=== PATIENT | male | born 1990 | race African-American/Black ===

== ENCOUNTER 2017-09-02 18:07 | Emergency (ER) | payer BC, OTHER ==
[~2017-09-02] VITALS: Ht 182.9 cm; Wt 77.1 kg
[~2017-09-02 18:07] MED LIST: ALBU8.5H4 IH; ALPR.25T PO; AMOX500C2 PO; BUTA1CAP39 PO; CYCL10TA9 PO; DOXY100C2 PO; FLT11013 IH; IBP800T PO; LEVO750T6 PO; LRT10T PO; NYST1000 PO; PRD20T PO; PRED20TA PO; SERT25TA5 PO; TRAM-21 PO
--- NOTE | 2017-09-02 20:23 | ED General ---
General Chief Complaint: General Problems/Pain Stated Complaint: NAUSEA AFTER TAKING ANTIBIOTICS/PANIC ATTACK Nursing Triage Note: Pt reports he was possibly exposed to meningitis at work. Pt states he was given Cipro prophylactically at work today and began to feel nauseated afterwards and felt like he was having a panic attack. Nursing Sepsis Screen: No Definite Risk Source of Information: Patient Exam Limitations: No Limitations History of Present Illness Date Seen by Provider: Sep 03, 2017 Time Seen by Provider: 20:12 Initial Comments This 27-year-old young man presents to emergency room with "panic attack" and nausea after taking a Cipro pill as prophylaxis for a meningitis exposure at work. He had not eaten today prior to taking the Cipro pill around 13:00 214: 00. He has problems with anxiety and felt like he was having a panic attack. The anxiety and nausea have passed. He states he feels hot and his head "feels a little funny" but he feels fine otherwise. Allergies and Home Medications Allergies Coded Allergies: No Known Drug Allergies (Unverified Allergy, Mild, 11/25/08) Home Medications Fluticasone Propionate 12 Gm Aer.w.adap, 2 PUFF IH BID Prescribed by: SHERICE CANTU on 01/16/13 2337 Loratadine 10 Mg Box, 1 EACH PO DAILY Prescribed by: SHERICE CANTU on 01/16/13 2337 Sertraline HCl 25 Mg Tablet, 25 MG PO DAILY, (Reported) Patient Home Medication List Home Medication List Reviewed: Yes Constitutional: see HPI EENTM: no symptoms reported Respiratory: no symptoms reported Cardiovascular: no symptoms reported Gastrointestinal: see HPI Genitourinary: no symptoms reported Musculoskeletal: no symptoms reported Skin: no symptoms reported Psychiatric/Neurological: See HPI Hematologic/Lymphatic: No Symptoms Reported Past Nkwjxtw-Rdtiqu-Nnicco Hx Patient Social History Alcohol Use: Denies Use Recreational Drug Use: No Smoking Status: Never a Smoker 2nd Hand Smoke Exposure: No Recent Foreign Travel: No Contact w/Someone Who Travel: No Recent Infectious Disease Expo: No Recent Hopitalizations: No Immunizations Up To Date Tetanus Booster (TDap): Less than 5yrs Seasonal Allergies Seasonal Allergies: Yes Surgeries History of Surgeries: No Respiratory History of Respiratory Disorde: Yes Respiratory Disorders: Pneumonia, Chronic Bronchitis, Sleep Apnea Cardiovascular History of Cardiac Disorders: Yes Cardiac Disorders: Hypertension Neurological History of Neurological Disord: Yes Neurological Disorders: Concussion Reproductive System Hx Reproductive Disorders: No Sexually Transmitted Disease: No HIV/AIDS: No Genitourinary History of Genitourinary Disor: No Gastrointestinal History of Gastrointestinal Di: No Musculoskeletal History of Musculoskeletal Dis: Yes Musculoskeletal Disorders: Chronic Back Pain Endocrine History of Endocrine Disorders: No HEENT History of HEENT Disorders: No Cancer History of Cancer: No Psychosocial History of Psychiatric Problem: Yes (PANIC ATTACKS, transient tick) Behavioral Health Disorders: Anxiety Integumentary History of Skin or Integumenta: No Blood Transfusions History of Blood Disorders: No Adverse Reaction to a Blood Tr: No Family Medical History Significant Family History: Heart Disease, Cancer Family Medial History: Congenital disease Congenital heart disease G8 BROTHER Kidney disease 19 MOTHER Physical Exam Vital Signs Vital Signs - First Documented 09/02/17 18:28 Temp 97.6 Pulse 84 Resp 18 B/P (MAP) 157/86 (109) Pulse Ox 99 O2 Delivery Room Air Capillary Refill : Less Than 3 Seconds General Appearance: No Apparent Distress, WD/WN HEENT: PERRL/EOMI, Normal ENT Inspection, Pharynx Normal Neck: Normal Inspection Respiratory: Lungs Clear, Normal Breath Sounds, No Respiratory Distress Cardiovascular: Regular Rate, Rhythm, No Edema, No Murmur Extremity: Normal Inspection, No Pedal Edema Neurologic/Psychiatric: Alert, Oriented x3, No Motor/Sensory Deficits, Normal 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, 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 Norm as Tested Skin: Normal Color, Warm/Dry Progress/Results/Core Measures Suspected Sepsis Recent Fever Within 48 Hours: No Infection Criteria Present: None New/Unexplained Altered Menta: No Sepsis Screen: No Definite Risk Sepsis Diagnosis: SIRS Temperature:97.6 Pulse: 84 Respiratory Rate: 18 Blood Pressure 157 /86 Mean: 109 Results/Orders Vital Signs/I&O Vital Sign - Last 12Hours 09/02/17 09/02/17 20:21 20:28 Temp 99.0 98.0 Pulse 76 Resp 18 B/P (MAP) 135/78 (109) Pulse Ox 100 O2 Delivery Room Air Capillary Refill : Less Than 3 Seconds Blood Pressure Mean: 109 Progress Note : Progress Note Patient's exam was unremarkable. Temperature was checked temp orally and orally. He was afebrile. Nausea and anxiety had resolved. He was dismissed home in good condition. Departure Impression Impression: Primary Impression: Anxiety Additional Impressions: Nausea Meningitis exposure Disposition: HOME, SELF-CARE Condition: Improved Departure-Patient Inst. Decision time for Depature: 20:21 Referrals: NO,LOCAL PHYSICIAN (PCP/Family) Primary Care Physician Patient Instructions: Anxiety, Adult (DC) Add. Discharge Instructions: Drink plenty of clear liquids and eat a well-balanced diet. If you develop worsening symptoms such as worsening headache, fever greater than 100, etc. please return to care. Wear your mask if he returned to the emergency room. All discharge instructions reviewed with patient and/or family. Voiced understanding. TARA SAMANO MD Sep 02, 2017 20:23
[2017-09-02 20:28] VITALS: BP 135/78
== END 2017-09-02 20:27 | disposition home or self-care (01) ==
LOC: EDUNIT# 18:07 → ER 18:08
DX: F41.9 Anxiety disorder, unspecified (principal); R11.0 Nausea; G47.30 Sleep apnea, unspecified; I10 Essential (primary) hypertension; Z20.811 Contact with and (suspected) exposure to meningococcus; Z79.52 Long term (current) use of systemic steroids; Z87.01 Personal history of pneumonia (recurrent); Z82.49 Family history of ischemic heart disease and other diseases of the circulatory system
CPT/HCPCS: 99281

== ENCOUNTER 2017-10-05 10:38 | Emergency (ER) | payer BC ==
[~2017-10-05] VITALS: Ht 182.9 cm; Wt 95.3 kg
--- OUTSIDE RECORDS SUMMARY | 2017-10-05 10:43 | XMS REPORT ---
Author Author GENERATED, SYSTEM Organization Unknown Address Unknown Phone Unavailable Care Team Providers Care Cnc Technician Name Role Phone PP Unavailable Reason For Visit Chief Complaint MEDICATION REFILL Social History Functional Status Vital Signs Results Problems Encounter Diagnosis No relevant problems exist. Encounters Encounter Diagnosis No relevant problems exist. Plan of Care Procedures No relevant procedures performed. Immunizations No immunizations administered or ordered. Hospital Course Hospital Discharge Instructions Allergies, Adverse Reactions, Alerts This section is provider relations representative of the current allergy information, at the time of the CCD generation. In the case of regeneration of the CCD, the allergy information may not reflect the state of known allergies at the time of the CCD' s subject visit. * Ambien causes unspecified. * Xanax causes unspecified. * Latex Allergy has not been assessed. * IV Contrast Allergy has not been assessed. Medication Medication reconciliation has not been performed.
--- OUTSIDE RECORDS SUMMARY | 2017-10-05 10:43 | XMS REPORT ---
Author Author JOSE MIGUEL SANTOS [facility] Address Unknown Care Team Providers Care Casino Cashier Manager Name Role Phone JOSE MIGUEL SANTOS Unavailable PROBLEMS Type Condition ICD9-CM Code DPL33-LE Code Onset Dates Condition Status SNOMED Code Problem Other dyspnea and respiratory abnormalities 786.09 Active 390593646 Problem Other specified examination V72.85 Active 702608130 ALLERGIES Substance Reaction Event Type Date Status Xanax Unknown Drug Allergy October, Active Ambien Unknown Drug Allergy October, Active ENCOUNTERS Encounter Location Date Diagnosis [facility] [address] [id number] October, Dental examination Z01.20 [facility] [id number] [place] [id number] Mar, Dental examination Z01.20 [facility] [address] [place] [id number] Aug, Dental examination Z01.20 [facility] [address] [id number] Mar, Dental examination Z01.20 [facility] [id number] [place] [phone] Mar, Encounter for immunization Z23 [facility] [id number] [place] [address] [phone] Jan, Dental examination V72.2 [facility] [address] [place] [id number] Nov, Dental examination V72.2 [facility] [id number] [place] [id number] October, Dental examination V72.2 [facility] [address] [phone] Jan, [facility] [address] [facility] [id number], [place] [address] Dec, [facility] [address] [id number], [place] [address] Dec, [facility] [address] [facility] [id number], [place] [address] Sep, [facility] [address] [facility] [id number], [place] [address] Sep, [facility] [address] [facility] [id number], [place] [address] Sep, IMMUNIZATIONS No Known Immunizations SOCIAL HISTORY Never Assessed REASON FOR VISIT pain around filling PLAN OF CARE Activity Details Follow Up prn Reason:REFERRAL VITAL SIGNS Blood pressure systolic 142 mmHg 2016-11-02 Blood pressure diastolic 92 mmHg 2016-11-02 MEDICATIONS No Known Medications RESULTS No Results PROCEDURES Procedure Date Ordered Result Body Site LTD ORAL EVALUATION - PROBLEM FOCUS November 02, 2016 INTRAORL-PERIAPICAL 1 FILM 58303 November 02, 2016 BITEWING - SINGLE FILM November 02, 2016 INSTRUCTIONS MEDICATIONS ADMINISTERED No Known Medications MEDICAL (GENERAL) HISTORY Type Description Date Medical History back trouble Medical History high blood pressure Medical History pneumonia Medical History head neck jaw injuries
--- OUTSIDE RECORDS SUMMARY | 2017-10-05 10:44 | XMS REPORT ---
Author Author VIANEY PÉREZ [facility] eClinicalWorks Address Unknown Phone Unavailable Care Team Providers Care Assembly Manager Name Role Phone VIANEY PÉREZ CP Unavailable Allergies, Adverse Reactions, Alerts Substance Reaction Event Type N.K.D.A. Info Not Available Non Drug Allergy Problems Problem Type Condition Code Onset Dates Condition Status Problem Other dyspnea and respiratory abnormalities 786.09 Active Assessment Dental examination Z01.20 Active Problem Other specified examination V72.85 Active Medications Medication Code System Code Instructions Start Date End Date Status Dosage Zoloft [facility] [id number] not defined Procedures Procedure Coding System Code Date AMALGAM-FOUR/MORE SURF PRIM/PERM CPT-4 D2161 Mar 26, 2015 Vital Signs Date/Time: Mar 26, 2015 Blood Pressure Diastolic 95 mmHg Blood Pressure Systolic 129 mmHg Results No Known Results Summary Purpose eClinicalWorks Submission
--- OUTSIDE RECORDS SUMMARY | 2017-10-05 10:44 | XMS REPORT ---
Author CONCEPCION [facility] eClinicalWorks Address Unknown Phone Unavailable Care Team Providers Care Commercial Installer Name Role Phone CONCEPCION HALEY CP Unavailable Allergies No Known Allergies Problems Problem Type Condition Code Onset Dates Condition Status Problem Other dyspnea and respiratory abnormalities 786.09 Active Assessment Encounter for immunization Z23 Active Problem Other specified examination V72.85 Active Medications No Known Medications Procedures Procedure Coding System Code Date SINGLE IMMUNIZATION ADMIN CPT-4 28513 Mar 15, 2015 TDAP (BOOSTRIX) CPT-4 23656 Mar 15, 2015 Results No Known Results Immunizations Vaccine Administration Date TDAP (BOOSTRIX) Mar 15, 2015 Summary Purpose eClinicalWorks Submission
--- OUTSIDE RECORDS SUMMARY | 2017-10-05 10:44 | XMS REPORT ---
Author Author [facility] Address Unknown Care Team Providers Care Esl Instructional Assistant Name Role Phone JOSE MIGUEL SANTOS Unavailable PROBLEMS Type Condition ICD9-CM Code XYX23-MA Code Onset Dates Condition Status SNOMED Code Problem Other specified examination V72.85 Active 162730095 Problem Other dyspnea and respiratory abnormalities 786.09 Active 403972019 ALLERGIES Substance Reaction Event Type Date Status Xanax Unknown Drug Allergy Mar, Active Ambien Unknown Drug Allergy Mar, Active SOCIAL HISTORY No smoking Hx information available PLAN OF CARE Activity Details Follow Up prn Reason:RCT and crown VITAL SIGNS Height 72 in 2016-04-09 Blood pressure systolic 93 mmHg 2016-04-09 Blood pressure diastolic 56 mmHg 2016-04-09 MEDICATIONS No Known Medications RESULTS No Results PROCEDURES Procedure Date Ordered Related Diagnosis Body Site INTRAORL-PERIAPICAL 1 FILM 37350 Apr 09, 2016 BITEWING - SINGLE FILM Apr 09, 2016 IMMUNIZATIONS No Known Immunizations
[2017-10-05 10:59] LABS: BILIRUBIN,URINE NEGATIVE (NEGATIVE); CLARITY,URINE CLEAR; COLOR,URINE YELLOW; GLUCOSE, URINE (UA) NEGATIVE (NEGATIVE); KETONES,URINE NEGATIVE (NEGATIVE); LEUKOCYTE ESTERASE ,URINE NEGATIVE (NEGATIVE); NITRITE,URINE NEGATIVE (NEGATIVE); PH,URINE 8 (5-9); PROTEIN,URINE NEGATIVE (NEGATIVE); UROBILINOGEN,URINE NORMAL (NORMAL)
[2017-10-05] MEDS ORDERED: diphenhydrAMINE 25 MG TAB (BENADRYL) PO ONE (11:00)
[2017-10-05] MEDS ORDERED: ALPRAZolam 0.5 MG (XANAX) TAB PO SCH (11:00)
[2017-10-05 11:07] LABS: BACTERIA,URINE NEGATIVE /HPF; WBC,URINE RARE /HPF
--- NOTE | 2017-10-05 11:09 | ED General ---
General Chief Complaint: General Problems/Pain Stated Complaint: NAUSEA Source of Information: Patient Exam Limitations: No Limitations History of Present Illness Date Seen by Provider: Oct 05, 2017 Time Seen by Provider: 11:07 Initial Comments To ER per private vehicle from home with reports of severe anxiety, nausea, tingling in his legs. He also has a headache. He believes his symptoms are due to recently taking doxycycline for a bladder infection which he has stopped. Timing/Duration: 1-2 Days Severity: Moderate Allergies and Home Medications Allergies Coded Allergies: No Known Drug Allergies (Unverified Allergy, Mild, 11/25/08) Home Medications Clonazepam 0.25 Mg Tab.rapdis, 0.25 MG PO BID Prescribed by: CANDIDA MONTERROSO on 10/05/17 1114 Fluticasone Propionate 12 Gm Aer.w.adap, 2 PUFF IH BID Prescribed by: SHERICE CANTU on 01/16/13 233 Loratadine 10 Mg Box, 1 EACH PO DAILY Prescribed by: SHERICE CANTU on 01/16/13 2337 Sertraline HCl 25 Mg Tablet, 25 MG PO DAILY, (Reported) Patient Home Medication List Home Medication List Reviewed: Yes Review of Systems Constitutional: see HPI EENTM: see HPI Respiratory: no symptoms reported Cardiovascular: no symptoms reported Genitourinary: no symptoms reported Skin: no symptoms reported Psychiatric/Neurological: See HPI, Anxiety Hematologic/Lymphatic: No Symptoms Reported Immunological/Allergic: no symptoms reported Past Lcsnxed-Xixcqp-Fsibco Hx Patient Social History 2nd Hand Smoke Exposure: No Recent Foreign Travel: No Contact w/Someone Who Travel: No Recent Hopitalizations: No Immunizations Up To Date Tetanus Booster (TDap): Less than 5yrs Seasonal Allergies Seasonal Allergies: Yes Past Medical History Surgeries: No Respiratory: Yes Pneumonia, Chronic Bronchitis, Sleep Apnea Cardiac: Yes Hypertension Neurological: Yes Concussion Reproductive Disorders: No Sexually Transmitted Disease: No HIV/AIDS: No Genitourinary: No Gastrointestinal: No Musculoskeletal: Yes Chronic Back Pain Endocrine: No HEENT: No Cancer: No Psychosocial: Yes (PANIC ATTACKS, transient tick) Anxiety Integumentary: No Blood Disorders: No Adverse Reaction/Blood Tranf: No Family Medical History Congenital disease Congenital heart disease G8 BROTHER Kidney disease 19 MOTHER Heart Disease, Cancer Physical Exam Vital Signs Vital Signs - First Documented 10/05/17 10:45 Temp 98.2 Pulse 92 Resp 16 B/P (MAP) 136/88 (104) Pulse Ox 99 O2 Delivery Room Air Capillary Refill : General Appearance: No Apparent Distress, WD/WN, Anxious, Other (Rubbing his scalp constantly, deep breathing Tachypneic) Eyes: Bilateral Eye Normal Inspection, Bilateral Eye PERRL, Bilateral Eye EOMI HEENT: PERRL/EOMI, TMs Normal Neck: Full Range of Motion, Normal Inspection Respiratory: Normal Breath Sounds, No Accessory Muscle Use, No Respiratory Distress Cardiovascular: Regular Rate, Rhythm, Normal Peripheral Pulses Gastrointestinal: Normal Bowel Sounds, Non Tender, Soft Extremity: Normal Capillary Refill, Normal Inspection Neurologic/Psychiatric: Alert, Oriented x3 Skin: Normal Color, Warm/Dry Progress/Results/Core Measures Suspected Sepsis SIRS Temperature: Pulse: Respiratory Rate: Laboratory Tests 10/05/17 10:59: White Blood Count 8.1 Blood Pressure / Mean: Laboratory Tests 10/05/17 10:59: Creatinine 0.84, Platelet Count 256, Total Bilirubin 0.5 Results/Orders Lab Results Laboratory Tests Test 10/05/17 10:49 10/05/17 10:59 Range/Units Urine Color YELLOW Urine Clarity CLEAR Urine pH 8 5-9 Urine Specific [place] 1.015 L 1.016-1.022 Urine Protein NEGATIVE NEGATIVE Urine Glucose (UA) NEGATIVE NEGATIVE Urine Ketones NEGATIVE NEGATIVE Urine Nitrite NEGATIVE NEGATIVE Urine Bilirubin NEGATIVE NEGATIVE Urine Urobilinogen NORMAL NORMAL MG/DL Urine Leukocyte Esterase NEGATIVE NEGATIVE Urine RBC (Auto) NEGATIVE NEGATIVE Urine RBC NONE /HPF Urine WBC RARE /HPF Urine Crystals NONE /LPF Urine Bacteria NEGATIVE /HPF Urine Casts NONE /LPF Urine Mucus NEGATIVE /LPF Urine Culture Indicated NO Urine Opiates Screen NEGATIVE NEGATIVE Urine Oxycodone Screen NEGATIVE NEGATIVE Urine Methadone Screen NEGATIVE NEGATIVE Urine Propoxyphene Screen NEGATIVE NEGATIVE Urine Barbiturates Screen NEGATIVE NEGATIVE Ur Tricyclic Antidepressants Screen NEGATIVE NEGATIVE Urine Phencyclidine Screen NEGATIVE NEGATIVE Urine Amphetamines Screen NEGATIVE NEGATIVE Urine Methamphetamines Screen NEGATIVE NEGATIVE Urine Benzodiazepines Screen NEGATIVE NEGATIVE Urine Cocaine Screen NEGATIVE NEGATIVE Urine Cannabinoids Screen NEGATIVE NEGATIVE White Blood Count 8.1 4.3-11.0 10^3/uL Red Blood Count 5.41 4.35-5.85 10^6/uL Hemoglobin 17.0 13.3-17.7 G/DL Hematocrit 47 40-54 % Mean Corpuscular Volume 87 80-99 FL Mean Corpuscular Hemoglobin 31 25-34 PG Mean Corpuscular Hemoglobin Concent 36 32-36 G/DL Red Cell Distribution Width 13.1 10.0-14.5 % Platelet Count 256 130-400 10^3/uL Mean Platelet Volume 10.2 7.4-10.4 FL Neutrophils (%) (Auto) 67 42-75 % Lymphocytes (%) (Auto) 25 12-44 % Monocytes (%) (Auto) 8 0-12 % Eosinophils (%) (Auto) 1 0-10 % Basophils (%) (Auto) 0 0-10 % Neutrophils # (Auto) 5.4 1.8-7.8 X 10^3 Lymphocytes # (Auto) 2.0 1.0-4.0 X 10^3 Monocytes # (Auto) 0.6 0.0-1.0 X 10^3 Eosinophils # (Auto) 0.0 0.0-0.3 10^3/uL Basophils # (Auto) 0.0 0.0-0.1 10^3/uL Sodium Level 138 135-145 MMOL/L Potassium Level 3.6 3.6-5.0 MMOL/L Chloride Level 102 98-107 MMOL/L Carbon Dioxide Level 24 21-32 MMOL/L Anion Gap 12 5-14 MMOL/L Blood Urea Nitrogen 11 7-18 MG/DL Creatinine 0.84 0.60-1.30 MG/DL Estimat Glomerular Filtration Rate > 60 BUN/Creatinine Ratio 13 Glucose Level 95 70-105 MG/DL Calcium Level 10.3 H 8.5-10.1 MG/DL Total Bilirubin 0.5 0.1-1.0 MG/DL Aspartate Amino Transf (AST/SGOT) 17 5-34 U/L Alanine Aminotransferase (ALT/SGPT) 21 0-55 U/L Alkaline Phosphatase 63 40-136 U/L Total Protein 8.1 6.4-8.2 GM/DL Albumin 4.9 H 3.2-4.5 GM/DL Medications Given in ED Current Medications Medications Dose Ordered Sig/Ren Route Start Time Stop Time Status Last Admin Dose Admin Diphenhydramine HCl 25 mg ONCE ONCE PO 10/05/17 11:00 10/05/17 11:01 DC 10/05/17 11:01 25 MG Vital Signs/I&O 10/05/17 10/05/17 10:45 11:35 Temp 98.2 98.2 Pulse 92 88 Resp 16 16 B/P (MAP) 136/88 (104) 132/70 (104) Pulse Ox 99 99 O2 Delivery Room Air Capillary Refill : Departure Impression Primary Impression: Anxiety Disposition: 01 HOME, SELF-CARE Condition: Stable Departure-Patient Inst. Decision time for Depature: 11:13 Referrals: TRINI NUNN DO (PCP/Family) Primary Care Physician Patient Instructions: Anxiety, Adult (DC) Add. Discharge Instructions: 1. Follow up with your doctor later this week to discuss other medication options to better control your anxiety. All discharge instructions reviewed with patient and/or family. Voiced understanding. Scripts Clonazepam (Clonazepam) 0.25 Mg Tab.rapdis 0.25 MG PO BID, #14 TAB Prov: CANDIDA MONTERROSO APRN 10/05/17 CANDIDA MONTERROSO APRN Oct 05, 2017 11:09
[2017-10-05 11:11] LABS: AMPHETAMINE SCREEN, URINE NEGATIVE (NEGATIVE); BARBITURATE SCREEN URINE NEGATIVE (NEGATIVE); BENZODIAZEPINES SCREEN URINE NEGATIVE (NEGATIVE); CANNABINOID SCREEN, URINE NEGATIVE (NEGATIVE); COCAINE SCREEN URINE NEGATIVE (NEGATIVE); METHADONE STAT NEGATIVE (NEGATIVE); METHAMPHETAMINE SCREEN URINE S NEGATIVE (NEGATIVE); OPIATE SCREEN URINE NEGATIVE (NEGATIVE); OXYCODONE STAT NEGATIVE (NEGATIVE); PROPOXYPHENE STAT NEGATIVE (NEGATIVE); TRICYCLIC ANTIDEPRESSANTS SCRE NEGATIVE (NEGATIVE)
[2017-10-05 11:11] LABS: BASOPHILS % (AUTO) 0 % (0-10); EOSINOPHILS % (AUTO) 1 % (0-10); HEMATOCRIT 47 % (40-54); LYMPHOCYTES % (AUTO) 25 % (12-44); MEAN CORPUSCULAR HEMOGLOBIN 31 PG (25-34); MEAN CORPUSCULAR HGB CONC 36 G/DL (32-36); MEAN CORPUSCULAR VOLUME 87 FL (80-99); MEAN PLATELET VOLUME 10.2 FL (7.4-10.4); MONOCYTES # (AUTO) 0.6 X 10^3 (0.0-1.0); MONOCYTES % (AUTO) 8 % (0-12); NEUTROPHILS # (AUTO) 5.4 X 10^3 (1.8-7.8); NEUTROPHILS % (AUTO) 67 % (42-75); PLATELET COUNT 256 10^3/uL (130-400); RED BLOOD COUNT 5.41 10^6/uL (4.35-5.85); RED CELL DISTRIBUTION WIDTH 13.1 % (10.0-14.5); WHITE BLOOD COUNT 8.1 10^3/uL (4.3-11.0)
[2017-10-05] MEDS ORDERED: CLON0.252 PO (11:14)
[2017-10-05 11:24] LABS: ALANINE AMINOTRANSFERASE 21 U/L (0-55); ALBUMIN 4.9 GM/DL (3.2-4.5); ALKALINE PHOSPHATASE 63 U/L (40-136); BILIRUBIN,TOTAL 0.5 MG/DL (0.1-1.0); BUN/CREATININE RATIO 13; CALCIUM 10.3 MG/DL (8.5-10.1); CARBON DIOXIDE 24 MMOL/L (21-32); CHLORIDE 102 MMOL/L (98-107); CREATININE SERUM 0.84 MG/DL (0.60-1.30); GFR ESTIMATED > 60; GLUCOSE 95 MG/DL (70-105); POTASSIUM 3.6 MMOL/L (3.6-5.0); SODIUM 138 MMOL/L (135-145); TOTAL PROTEIN 8.1 GM/DL (6.4-8.2)
[2017-10-05 11:35] VITALS: BP 132/70
== END 2017-10-05 11:35 | disposition home or self-care (01) ==
LOC: EDUNIT# 10:38 → ER 10:40
DX: F41.9 Anxiety disorder, unspecified (principal); G47.30 Sleep apnea, unspecified; I10 Essential (primary) hypertension; Z82.49 Family history of ischemic heart disease and other diseases of the circulatory system; Z87.01 Personal history of pneumonia (recurrent)
CPT/HCPCS: 36415; 80053; 80306; 81000; 85025; 99283